=== PATIENT | male | born 1935 | race Caucasian/White ===

== ENCOUNTER 2018-11-12 09:12 | Inpatient (IN) ==
[2018-11-12] MEDS ORDERED: 0.9 % SODIUM CHLORIDE 250 ML IV SCH ×2 (09:30→09:45)
[2018-11-12] MEDS ORDERED: DILTIAZEM 25 MG/5 ML VIAL IV ONE (09:37)
--- NOTE | 2018-11-12 09:39 | Emergency Department Note ---
General Adult HPI - General Chief complaint: Shortness of Breath/Dyspnea Stated complaint: SOB, Recent bloody stools Time Seen by Provider: 11/12/18 09:33 Source: patient Mode of arrival: ambulatory - History of Present Illness HPI Narrative: This patient has a history of atrial fibrillation and takes Coumadin. He still short of breath with rapid heart rate for maybe 10 days. Also said black stools. He was seen here Tuesday with a hemoglobin of 7.9 and an INR of 3.2. He continues to be symptomatic and his heart rate is running as high as 133 at times. Has no abdominal pain or chest pain. - Related Data Home Medications Medication Instructions Recorded Confirmed aspirin 81 mg tablet,delayed 81 mg PO QDAY tab 12/17/14 11/12/18 release multivitamin tablet 1 tab PO QDAY tab 12/17/14 11/12/18 potassium chloride ER 10 mEq 10 meq PO QDAY tab 12/17/14 11/12/18 tablet,extended release diltiazem CD 120 mg 120 mg PO QDAY cap 04/14/16 11/12/18 capsule,extended release 24 hr warfarin 5 mg tablet See Rx Instructions PO QDAY 04/14/16 11/12/18 Previous Rx's Medication Instructions Recorded fluticasone propionate 50 2 spray INTRANASAL QDAY #15.8 g 05/18/18 mcg/actuation nasal spray,suspension atorvastatin 40 mg tablet 40 mg PO QDAY #90 tab 06/02/18 metoprolol tartrate 100 mg tablet 150 mg PO BID #270 tab 06/20/18 Furosemide [Lasix] 20 mg PO DAILY 5 Days #5 tab 11/10/18 Allergies Allergy/AdvReac Type Severity Reaction Status Date / Time tetanus toxoid, adsorbed Allergy Intermediate Hives Verified 11/12/18 09:18 Review of Systems All systems ED: reviewed and negative except as stated. Past Medical History - Past Medical History [facility] Narrative: Medical History Rib fracture (Acute) Bronchitis (Acute) Atrial fibrillation (Acute) History of colonic polyps (Acute) CAD (coronary artery disease) (Acute) Closed fracture of tarsal and metatarsal bones of right foot (Acute) Gastroesophageal reflux (Acute) Hyperlipidemia (Acute) Hypertension, essential (Acute) Osteoarthritis (Acute) Malignant neoplasm prostate (Acute) Shoulder impingement syndrome (Acute) Wrist fracture, left (Acute) Diabetes mellitus, type II (Ruled-out) Past Surgical History History of amputation of finger (Acute) History of arthroscopic knee surgery (Acute) History of inguinal hernia repair (Acute) History of intraocular lens implant (Acute) History of total knee arthroplasty (Acute) History of radical prostatectomy (Acute) History of coronary artery bypass graft (Acute) History of coronary artery stent placement (Acute) History of adenoidectomy (Acute) History of tonsillectomy (Acute) History of esophagogastroduodenoscopy (EGD) (Chronic 06/17/16) Family History Mother Chronic obstructive pulmonary disease Diabetes mellitus Father Atherosclerosis of coronary artery Malignant neoplasm of prostate Essential hypertension Medical history: Reports: atrial fibrillation, cancer (prostate), CAD (coronary artery disease), GERD, hyperlipidemia, hypertension, osteoporosis, other (A. fib, GERD, hyperlipidemia, hypertension,) Surgical history ED: Reports: cataract, coronary bypass (CABG), herniorrhaphy, tonsillectomy, other (Right knee arthroscopy, CABG, last day, cataract, tonsillectomy, foot surgery) - Social History smoking status: Former smoker Alcohol use: Reports: Occasionally Drug use: Reports: none Physical Exam Limitations: no limitations General appearance: alert Head: atraumatic Eye: Present: normal appearance ENT: normal exam Neck: Present: normal inspection Chest: Present: normal inspection Respiratory: Present: normal lung sounds bilaterally Cardiovascular: Present: tachycardia, irregular rhythm, normal heart sounds Abdominal: Present: soft. Absent: distention, tenderness Neurological: Present: alert Psychiatric: Present: normal affect Skin: Present: warm, dry Course Vital Signs Temperature 97.7 F 11/12/18 09:14 Pulse Rate 86 11/12/18 09:14 Respiratory Rate 20 11/12/18 09:14 Blood Pressure 120/81 11/12/18 09:14 Pulse Oximetry (%) 100 11/12/18 09:14 Temperature 97.7 F 11/12/18 09:14 Pulse Rate 83 11/12/18 11:30 Respiratory Rate 24 H 11/12/18 11:30 Blood Pressure 103/56 11/12/18 11:27 Pulse Oximetry (%) 99 11/12/18 11:30 Medical Decision Making - MDM Narrative Medical decision making narrative: This patient was hydrated did not require diltiazem as his heart rate came down to around 100 spontaneously. His hemoglobin is 5.7 down from 7.9 on Tuesday. We gave him 5 mg of vitamin KID. He will be admitted to the hospital by Dr. Meraz with the hospitalist and Dr. Frausto will consult. We will plan for a 3 unit blood transfusion. - Lab Data Lab results reviewed: Yes I reviewed the patient's lab results. Result diagrams: 11/12/18 09:29 11/12/18 09:28 Lab Results 11/12/18 11/12/18 11/12/18 Range/Units 09:28 09:28 09:29 WBC 18.7 H (4.5-11.0) K/mcL RBC 1.76 L (4.50-5.90) M/mcL Hgb 5.7 L* (13.5-16.5) g/dL Hct 18.0 L* (41.0-55.0) % POC Hct 15.0 L* (41.0-55.0) % MCV 102.1 H (80.0-100.0) fL MCH 32.6 (26.0-34.0) pg MCHC 31.9 (31.0-36.0) g/dL RDW 20.5 H (11.5-14.5) % Plt Count 226 (140-440) K/mcL MPV 9.4 (7.4-10.4) fL Gran % 72.0 (38.0-78.0) % Lymph % (Auto) 19.1 (15.5-49.0) % [place] % (Auto) 8.6 (1.0-12.0) % Eos % (Auto) 0.1 (0.0-7.0) % Baso % (Auto) 0.2 (0.0-2.0) % Gran # 13.4 H (1.8-8.0) K/mcL Lymph # (Auto) 3.6 (1.5-4.8) K/mcL [place] # (Auto) 1.6 H (0.1-0.9) K/mcL Eos # (Auto) 0 (0.0-0.7) K/mcL Baso # (Auto) 0 (0.0-0.3) K/mcL PT 35.1 H (11.9-14.5) sec INR 3.6 H (0.9-1.1) POC Sodium 137 (133-145) mmol/L Sodium 136 (133-145) mmol/L POC Potassium 3.8 (3.3-5.1) mmol/L Potassium 3.9 (3.3-5.1) mmol/L POC Chloride 102 (96-108) mmol/L Chloride 100 (96-108) mmol/L Carbon Dioxide 19 L (22-30) mmol/L POC Total CO2 22 (22-30) mmol/L Anion Gap 17.0 H (8-16) POC BUN 37 H (8-23) mg/dl BUN 38 H (8-23) mg/dl Creatinine 1.1 (0.7-1.2) mg/dl POC Creatinine 1.0 (0.7-1.2) mg/dl GFR Calculation 63 Glucose 221 H (70-105) mg/dL POC Glucose 215 H (70-105) mg/dL Calcium 8.7 (8.6-10.4) mg/dl POC WB Ioniz Calcium 1.18 (1.16-1.32) mmol/L Total Bilirubin 0.7 (0.0-1.0) mg/dL AST 13 (0-37) U/l ALT 14 (0-40) U/l Alkaline Phosphatase 47 (39-117) U/L Total Protein 4.9 L (5.9-8.4) gm/dL Albumin 3.3 (3.2-5.2) gm/dL Globulin 1.6 L (2.2-3.7) gm/dL Albumin/Globulin Ratio 2.1 (1.0-2.3) Disposition Pt seen by BACKGROUND CHECK COORDINATOR/PA only: No Clinical Impression: Melena, Atrial fibrillation Disposition: Xfer As Inpt ([facility]) Condition: Good Referrals: Cabrera Cunningham MD [Primary Care Provider] - Time of Disposition: 11:34
[2018-11-12 09:43] LABS: POC Blood Urea Nitrogen 37 mg/dl (8-23); POC CO2 22 mmol/L (22-30); POC Calcium, Ionized 1.18 mmol/L (1.16-1.32); POC Chloride 102 mmol/L (96-108); POC Glucose, Random 215 mg/dL (70-105); POC Potassium 3.8 mmol/L (3.3-5.1); POC Sodium 137 mmol/L (133-145)
[2018-11-12] MEDS ORDERED: DILTIAZEM 125 MG in DEXTROSE 5% IN WATER 100 ML IV SCH (09:45)
[2018-11-12] MEDS ORDERED: DEXTROSE 5% IN WATER 100 ML IV ONE (09:55)
[2018-11-12 10:15] LABS: Basophils # (Auto) 0 K/mcL (0.0-0.3); Basophils % (Auto) 0.2 % (0.0-2.0); Eosinophils # (Auto) 0 K/mcL (0.0-0.7); Eosinophils % (Auto) 0.1 % (0.0-7.0); Hemoglobin 5.7 g/dL (13.5-16.5); Lymphocytes # (Auto) 3.6 K/mcL (1.5-4.8); Lymphocytes % (Auto) 19.1 % (15.5-49.0); Mean Cell Volume 102.1 fL (80.0-100.0); Mean Corpuscular HGB Conc 31.9 g/dL (31.0-36.0); Mean Platelet Volume 9.4 fL (7.4-10.4); Monocytes # (Auto) 1.6 K/mcL (0.1-0.9); Monocytes % (Auto) 8.6 % (1.0-12.0); Platelet Count 226 K/mcL (140-440); RBC 1.76 M/mcL (4.50-5.90); Red Cell Distribution Width 20.5 % (11.5-14.5); WBC 18.7 K/mcL (4.5-11.0)
[2018-11-12 10:25] LABS: INR 3.6 (0.9-1.1); Prothrombin Time 35.1 sec (11.9-14.5)
[2018-11-12 10:30] LABS: ALT/SGPT 14 U/l (0-40); AST/SGOT 13 U/l (0-37); Albumin 3.3 gm/dL (3.2-5.2); Albumin/Globulin Ratio 2.1 (1.0-2.3); Alkaline Phosphatase 47 U/L (39-117); Bilirubin,Total 0.7 mg/dL (0.0-1.0); Blood Urea Nitrogen 38 mg/dl (8-23); Calcium 8.7 mg/dl (8.6-10.4); Carbon Dioxide 19 mmol/L (22-30); Chloride 100 mmol/L (96-108); Globulin 1.6 gm/dL (2.2-3.7); Glomerular Filtration Rate 63; Glucose 221 mg/dL (70-105); Potassium 3.9 mmol/L (3.3-5.1); Sodium 136 mmol/L (133-145)
[2018-11-12] MEDS ORDERED: PHYTONADIONE 5 MG in 0.9 % SODIUM CHLORIDE 50 ML IV ONE (10:52)
--- NOTE | 2018-11-12 12:34 | Internal Med History&Physical ---
Medical - H&P: [facility] Patient information: Note initiated : 11/12/18 at 12:30 pm Service Date, if different from initiated Date: [] Patient: Chuy Beck a 82 y/o M admitted on for SOB, Recent bloody stools. Chief Complaint: [] History of present illness: Mr. Beck is a 82 year old M Who presents to the ED with shortness of breath. He was seen in the ED several days ago with some shortness of breath and had anemia. And that time he was scheduled to see Dr. Frausto for a endoscopy for GI bleeding. Patient reports about 8 days ago he started having some dark tarry stool with some occasional mild shortness of breath which progressed to the point where he went to the ER initially and then today is just short of breath and progressively weak and became lightheaded that he came and. He was found to have a hemoglobin of 5.7. Reports that he saw Dr. Teresa Meneses about a month ago at that time they were concerned about some bleeding and had him stop his aspirin at that time. In the ER today his INR is 3.6. Per his he was pale the past couple days as color is better after several units of blood already. He does take ibuprofen PM 2-3 times per week for the past couple weeks. In the ED his blood pressure is stable the lowest it dropped was 97 /75 but is otherwise been running low 100s. Was tachycardia 130 when he came in but came down to low 100s on its own. Case was discussed with Dr. Frausto who will perform endoscopy. Review of Systems: Pertinent positives as above. Denies he adache/fever/chills/nausea/vomiting/chest or abdominal pain/cough. Remaining 10 point review of system reviewed negative Medical - H&P: PMH Medical history: Medical History Rib fracture (Acute) Bronchitis (Acute) Atrial fibrillation (Acute) History of colonic polyps (Acute) CAD (coronary artery disease) (Acute) Closed fracture of tarsal and metatarsal bones of right foot (Acute) Gastroesophageal reflux (Acute) Hyperlipidemia (Acute) Hypertension, essential (Acute) Osteoarthritis (Acute) Malignant neoplasm prostate (Acute) Shoulder impingement syndrome (Acute) Wrist fracture, left (Acute) Diabetes mellitus, type II (Ruled-out) Past Surgical History History of amputation of finger (Acute) History of arthroscopic knee surgery (Acute) History of inguinal hernia repair (Acute) History of intraocular lens implant (Acute) History of total knee arthroplasty (Acute) History of radical prostatectomy (Acute) History of coronary artery bypass graft (Acute) History of coronary artery stent placement (Acute) History of adenoidectomy (Acute) History of tonsillectomy (Acute) History of esophagogastroduodenoscopy (EGD) (Chronic 06/17/16) Family History Mother Chronic obstructive pulmonary disease Diabetes mellitus Father Atherosclerosis of coronary artery Malignant neoplasm of prostate Essential hypertension Social History (Last Updated 05/18/18 @ 13:49 by Cabrera Cunningham MD) Patient quit smoking 35 years ago Drinks 2 beers per day Is independent ambulatory Lives at home with his Medical - H&P: Meds Home Medications Medication Instructions Recorded Confirmed Type aspirin 81 mg tablet,delayed 81 mg PO QDAY tab 12/17/14 11/12/18 History release multivitamin tablet 1 tab PO QDAY tab 12/17/14 11/12/18 History potassium chloride ER 10 mEq 10 meq PO QDAY tab 12/17/14 11/12/18 History tablet,extended release diltiazem CD 120 mg 120 mg PO QDAY cap 04/14/16 11/12/18 History capsule,extended release 24 hr warfarin 5 mg tablet See Rx Instructions PO QDAY 04/14/16 11/12/18 History fluticasone propionate 50 2 spray INTRANASAL QDAY #15.8 g 05/18/18 11/12/18 Rx mcg/actuation nasal spray,suspension atorvastatin 40 mg tablet 40 mg PO QDAY #90 tab 06/02/18 11/12/18 Rx metoprolol tartrate 100 mg tablet 150 mg PO BID #270 tab 06/20/18 11/12/18 Rx Furosemide [Lasix] 20 mg PO DAILY 5 Days #5 tab 11/10/18 11/12/18 Rx Allergies Allergy/AdvReac Type Severity Reaction Status Date / Time tetanus toxoid, adsorbed Allergy Intermediate Hives Verified 11/12/18 09:18 Medical - H&P: Exam - Constitutional Vitals: Temp Pulse Resp BP Pulse Ox 97.7 F 83 24 H 103/56 99 11/12/18 09:14 11/12/18 11:30 11/12/18 11:30 11/12/18 11:27 11/12/18 11:30 Exam: General: Alert, Awake, No acute Distress Eyes/N/T: EOMI, PEERL, DMM Head/Neck: neck supple, normocephalic atraumatic CV: Irregular irrregular with 2/6 SM Pulm: Clear b/l, no wheezing/rhonchi/rales Abd: soft, nontender, +BS x4 Ext: no clubbing/cyanosis/edema Neuro: Alert, no focal deficits, moves all extremities, CN 2-12 grossly intact, symmetrical strength b/l upper/lower, sensations intact b/l upper/lower Skin: warm/dry, pale Medical - H&P: Reslt - Labs CBC & Chem 7: 11/12/18 09:29 11/12/18 09:28 Labs: Short CBC 11/12/18 Range/Units 09:29 WBC 18.7 H (4.5-11.0) K/mcL Hgb 5.7 L* (13.5-16.5) g/dL Hct 18.0 L* (41.0-55.0) % Plt Count 226 (140-440) K/mcL BMP 11/12/18 09:28 Sodium 136 Potassium 3.9 Chloride 100 Carbon Dioxide 19 L BUN 38 H Creatinine 1.1 Glucose 221 H Calcium 8.7 Liver Function 11/12/18 Range/Units 09:28 Total Bilirubin 0.7 (0.0-1.0) mg/dL AST 13 (0-37) U/l ALT 14 (0-40) U/l Alkaline Phosphatase 47 (39-117) U/L Albumin 3.3 (3.2-5.2) gm/dL Medical - H&P: A/P - Narrative A/P Narrative: A: *Symptomatic anemia, acute blood loss: 2/2 GI bleed likely upper -Has been taking ibuprofen 2-3 times per week *GI bleed: *Coagulopathy: 2/2 warfarin 3.6 -ASA at home has been held because of inserts for PUD over the past month *Leukocytosis: suspect reactive, afebrile, no obvious source of infection *Macrocytosis: *Hyperglycemia: Denies diabetes *AFib: On diltiazem/metoprolol and warfarin at home *CAD with CABG/Stent: follows with Dr. Vogt *HTN/HLD: *GERD: Is on Prilosec at home * P: -NPO, IVF -Dr. Mi consulted -Transfusing PRBCs, follow-up H&H -Protonix drip -Avoid NSAIDs -check A1c, SSI -Aspirin and warfarin held, likely restart warfarin at 5 to 7 days depending on endoscopy results -Continue calcium channel anju and beta-anju -cont statin -hold lasix for now -Check B12 level -pt/ot -ppx: SCDs
[2018-11-12] MEDS ORDERED: METOCLOPRAMIDE 10 MG/2 ML VIAL IV PRN (13:53)
[2018-11-12] MEDS ORDERED: 0.9 % SODIUM CHLORIDE 1,000 ML IV SCH (13:53)
[2018-11-12] MEDS ORDERED: PANTOPRAZOLE 40 MG VIAL IV ONE (13:53)
[2018-11-12] MEDS ORDERED: ONDANSETRON 4 MG/2 ML VIAL IV PRN (13:53)
[2018-11-12] MEDS ORDERED: IPRATROPIUM/ALBUTEROL 3 ML AMPUL.NEB NEB PRN (13:53)
[2018-11-12] MEDS ORDERED: MAGNESIUM SULFATE 2 GM/50 ML BAG IV PRN (13:53)
[2018-11-12] MEDS ORDERED: POTASSIUM CHLORIDE 40 MEQ in DEXTROSE 5% IN WATER 500 ML IV PRN (13:53)
[2018-11-12] MEDS ORDERED: POTASSIUM CHLORIDE 20 MEQ TABLET PO PRN ×2 (13:53)
[2018-11-12] MEDS ORDERED: DEXTROSE 50% 50 ML VIAL IV PRN (13:53)
[2018-11-12] MEDS ORDERED: ACETAMINOPHEN 325 MG TABLET PO PRN (13:53)
[2018-11-12] MEDS ORDERED: DEXTROSE 31 GM ORAL.SUSP PO PRN (13:53)
[2018-11-12] MEDS: PANTOPRAZOLE 80 MG in 0.9 % SODIUM CHLORIDE 100 ML IV SCH (14:43)
[2018-11-12] MEDS: 0.9 % SODIUM CHLORIDE 10 ML SYRINGE IV SCH ×2 (15:10→22:04)
[2018-11-12] MEDS: INSULIN LISPRO 1 UNIT/0.01 ML UNIT SQ SCH ×2 (17:07→21:38)
[2018-11-12] MEDS ORDERED: FUROSEMIDE 20 MG/2 ML VIAL IV ONE ×2 (17:46→19:28)
[2018-11-12] MEDS: DOCUSATE SODIUM 100 MG CAPSULE PO SCH (21:39)
[2018-11-12] MEDS: METOPROLOL TARTRATE 50 MG TABLET PO SCH (21:43)
[2018-11-12 21:56] LABS: Hematocrit 30.5 % (41.0-55.0); Hemoglobin 10.5 g/dL (13.5-16.5)
[2018-11-13] MEDS: PANTOPRAZOLE 80 MG in 0.9 % SODIUM CHLORIDE 100 ML IV SCH ×3 (00:13→23:51)
[2018-11-13 04:59] LABS: Basophils # (Auto) 0 K/mcL (0.0-0.3); Basophils % (Auto) 0.2 % (0.0-2.0); Eosinophils # (Auto) 0 K/mcL (0.0-0.7); Eosinophils % (Auto) 0.4 % (0.0-7.0); Granulocytes % (Auto) 70.3 % (38.0-78.0); Hematocrit 27.6 % (41.0-55.0); Hemoglobin 9.2 g/dL (13.5-16.5); Lymphocytes # (Auto) 1.8 K/mcL (1.5-4.8); Lymphocytes % (Auto) 21.2 % (15.5-49.0); Mean Cell Volume 95.5 fL (80.0-100.0); Mean Corpuscular HGB Conc 33.3 g/dL (31.0-36.0); Mean Platelet Volume 8.9 fL (7.4-10.4); Monocytes # (Auto) 0.7 K/mcL (0.1-0.9); Monocytes % (Auto) 7.9 % (1.0-12.0); Platelet Count 119 K/mcL (140-440); RBC 2.89 M/mcL (4.50-5.90); Red Cell Distribution Width 16.4 % (11.5-14.5); WBC 8.3 K/mcL (4.5-11.0)
[2018-11-13 05:26] LABS: INR 1.3 (0.9-1.1); Prothrombin Time 16.6 sec (11.9-14.5)
[2018-11-13 05:31] LABS: ALT/SGPT 12 U/l (0-40); AST/SGOT 14 U/l (0-37); Albumin 2.9 gm/dL (3.2-5.2); Albumin/Globulin Ratio 2.4 (1.0-2.3); Alkaline Phosphatase 42 U/L (39-117); Bilirubin,Direct 0.3 mg/dL (0.0-0.3); Bilirubin,Total 1.1 mg/dL (0.0-1.0); Blood Urea Nitrogen 26 mg/dl (8-23); Calcium 7.8 mg/dl (8.6-10.4); Carbon Dioxide 23 mmol/L (22-30); Chloride 107 mmol/L (96-108); Gamma Glutamyl Transpeptidase 14 U/L (8-61); Globulin 1.2 gm/dL (2.2-3.7); Glomerular Filtration Rate 70; Glucose 93 mg/dL (70-105); Lactate Dehydrogenase 144 U/L (94-250); Magnesium 1.8 mg/dL (1.6-2.5); Phosphorous 3.4 mg/dL (2.7-4.5); Potassium 3.4 mmol/L (3.3-5.1); Sodium 141 mmol/L (133-145); Triglycerides 157 mg/dl (<150); Uric Acid 6.2 mg/dL (2.5-8.0)
[2018-11-13] MEDS: 0.9 % SODIUM CHLORIDE 10 ML SYRINGE IV SCH ×3 (06:10→21:04)
--- NOTE | 2018-11-13 07:12 | Internal Med Progress Note ---
Medical - PN: Subj Patient information: Note initiated : 11/13/18 at 7:08 am Service Date, if different from initiated Date: [] Patient: Chuy Beck a 82 y/o M admitted on 11/12/18 for SOB, Recent bloody stools. Chief Complaint: [] Interval history: Mr. Beck is a 82 year old M Who presents to the ED with shortness of breath. He was seen in the ED several days ago with some shortness of breath and had anemia. And that time he was scheduled to see Dr. Frausto for a endoscopy for GI bleeding. Patient reports about 8 days ago he started having some dark tarry stool with some occasional mild shortness of breath which progressed to the point where he went to the ER initially and then today is just short of breath and progressively weak and became lightheaded that he came and. He was found to have a hemoglobin of 5.7. Reports that he saw Dr. Teresa Meneses about a month ago at that time they were concerned about some bleeding and had him stop his aspirin at that time. In the ER today his INR is 3.6. Per his he was pale the past couple days as color is better after several units of blood already. He does take ibuprofen PM 2-3 times per week for the past couple weeks. In the ED his blood pressure is stable the lowest it dropped was 97 /75 but is otherwise been running low 100s. Was tachycardia 130 when he came in but came down to low 100s on its own. Case was discussed with Dr. Frausto who will perform endoscopy. / Feeling much better since receiving the blood. No new complaints. No chest pain shortness of breath. Review of Systems: denies headache/fever/chills/nausea/vomiting/chest or abdominal pain/cough/dyspnea/diarrhea. Otherwise see above. - Constitutional Vitals: Vital Signs Temp Pulse Resp BP Pulse Ox 99.5 F H 97 H 12 125/60 94 11/13/18 06:01 11/12/18 17:00 11/13/18 06:01 11/13/18 06:01 11/13/18 04:02 Period Temp Pulse Resp BP Sys/Wu Pulse Ox Last 24 Hr 97.7 F-99.5 F 60-125 12-29 97-128/56-104 94-100 Intake and Output 11/12/18 11/13/18 11/13/18 21:59 05:59 13:59 Intake Total 1405 345 Output Total 1525 575 Balance -120 -230 Weight 86.5 kg Intake & Output: Intake & Output 11/12/18 11/13/18 11/13/18 21:59 05:59 13:59 Intake Total 1405 345 Output Total 1525 575 Balance -120 -230 Weight 86.5 kg Intake: IV 95 Protonix 80 mg In Sodium 95 Chloride 0.9% 100 ml @ 8 MG/HR 10 mls/hr IV Q10H [facility] Rx#: [id number] Oral 1080 250 Blood Product 325 Output: Void Amount 1525 575 Exam: General: Alert, Awake, No acute Distress Eyes/N/T: EOMI, Head/Neck: neck supple, CV: Irregular irrregular with 2/6 SM Pulm: Clear b/l, no wheezing/rhonchi/rales Abd: soft, nontender, +BS x4 Ext: no clubbing/cyanosis/edema Neuro: Alert, no focal deficits, moves all extremities, Skin: warm/dry, pale Medical - PN: Obj Da - Labs CBC & Chem 7: 11/13/18 03:35 11/13/18 03:35 Labs: Abnormal Lab Results 11/13/18 11/13/18 11/13/18 03:35 03:35 03:35 WBC RBC 2.89 L Hgb 9.2 L Hct 27.6 L POC Hct MCV RDW 16.4 H Plt Count 119 L Gran # [place] # (Auto) PT 16.6 H INR 1.3 H Carbon Dioxide Anion Gap POC BUN BUN 26 H Glucose POC Glucose Calcium 7.8 L Total Bilirubin 1.1 H Total Protein 4.1 L Albumin 2.9 L Globulin 1.2 L Albumin/Globulin Ratio 2.4 H Triglycerides 157 H 11/12/18 11/12/18 11/12/18 20:53 09:29 09:28 WBC 18.7 H RBC 1.76 L Hgb 10.5 L 5.7 L* Hct 30.5 L 18.0 L* POC Hct MCV 102.1 H RDW 20.5 H Plt Count Gran # 13.4 H [place] # (Auto) 1.6 H PT 35.1 H INR 3.6 H Carbon Dioxide Anion Gap POC BUN BUN Glucose POC Glucose Calcium Total Bilirubin Total Protein Albumin Globulin Albumin/Globulin Ratio Triglycerides 11/12/18 09:28 WBC RBC Hgb Hct POC Hct 15.0 L* MCV RDW Plt Count Gran # [place] # (Auto) PT INR Carbon Dioxide 19 L Anion Gap 17.0 H POC BUN 37 H BUN 38 H Glucose 221 H POC Glucose 215 H Calcium Total Bilirubin Total Protein 4.9 L Albumin Globulin 1.6 L Albumin/Globulin Ratio Triglycerides Meds: Medications Acetaminophen (Tylenol) 650 mg PO Q6HP PRN PRN Reason: PAIN/FEVER > 101 Albuterol/Ipratropium (Duoneb) 3 ml NEB Q4HP PRN PRN Reason: Shortness Of Breath Atorvastatin Calcium (Lipitor) 40 mg PO DAILY [facility] Cyanocobalamin (Vitamin B-12) 1,000 mcg PO DAILY [facility] Dextrose (Dextrose 50%) 0 ml IV UD PRN PRN Reason: Hypoglycemia Diagnostic Test (Pha) (Accu-Chek) 1 each FS [facility] Last Admin: 11/12/18 21:38 Dose: 1 each Documented by: Diltiazem HCl (Cardizem Cd) 120 mg PO DAILY [facility] Docusate Sodium (Colace) 100 mg PO BID [facility] Last Admin: 11/12/18 21:39 Dose: 100 mg Documented by: Glucose (Insta-Glucose) 15 gm PO PRN PRN PRN Reason: Hypoglycemia Potassium Chloride 40 meq/ (Dextrose) 520 mls @ 130 mls/hr IV UD PRN PRN Reason: Potassium < 3 Magnesium Sulfate (Magnesium Sulfate) 2 gm in 50 mls @ 50 mls/hr IV UD PRN PRN Reason: Magnesium </= 1.6 Pantoprazole Sodium 80 mg/ (Sodium Chloride) 100 mls @ 10 mls/hr IV Q10H [facility] Last Admin: 11/13/18 00:13 Dose: 8 mg/hr, 10 mls/hr Documented by: Insulin Human Lispro (Humalog) 0 unit SQ [facility]; Protocol Last Admin: 11/12/18 21:38 Dose: Not Given Documented by: Metoclopramide HCl (Reglan) 10 mg IV Q6HP PRN PRN Reason: Nausea And Vomiting Metoprolol Tartrate (Lopressor) 150 mg PO BID [facility] Last Admin: 11/12/18 21:43 Dose: Not Given Documented by: Ondansetron HCl (Zofran) 4 mg IV Q4HP PRN PRN Reason: Nausea And Vomiting Potassium Chloride (Kdur) 40 meq PO UD PRN PRN Reason: Potssium is 3-3.5 Potassium Chloride (Kdur) 40 meq PO UD PRN PRN Reason: Potassium < 3 Sodium Chloride (Saline Flush) 10 ml IV Q8 [facility] Last Admin: 11/13/18 06:10 Dose: 10 ml Documented by: Medical - PN: A/P - Time Spent With Patient Total time spent is greater than 50% in coordination of care (as documented) at patient's floor/unit and/or counseling patient: - Narrative A/P Narrative: A: *Symptomatic anemia, acute blood loss: 2/2 GI bleed likely upper -Has been taking ibuprofen 2-3 times per week -3PRBC 6/2 -H&H stable *GI bleed: *Coagulopathy: 2/2 warfarin 3.6 -ASA at home has been held because of inserts for PUD over the past month *Macrocytosis: low b12 *Hyperglycemia: Denies diabetes *AFib: On diltiazem/metoprolol and warfarin at home *CAD with CABG/Stent: follows with Dr. Vogt *HTN/HLD: *GERD: Is on Prilosec at home * P: -NPO -Dr. Mi endoscopy today -Protonix drip -Avoid NSAIDs -Aspirin and warfarin held, likely restart warfarin at 5 to 7 days depending on endoscopy results -Continue calcium channel anju and beta-anju -cont statin -hold lasix for now -pt/ot -ppx: SCDs Medical - PN: Qual - Stroke Symptom Onset Unknown: No - VTE Deep Vein Thrombosis/Pulmonary Embolism Present on Admission: No
[2018-11-13] MEDS: INSULIN LISPRO 1 UNIT/0.01 ML UNIT SQ SCH ×4 (07:32→22:59)
[2018-11-13] MEDS ORDERED: METOPROLOL TARTRATE 5 MG/5 ML VIAL IV PRN (08:25)
[2018-11-13] MEDS: ATORVASTATIN 20 MG TABLET PO SCH (08:48)
[2018-11-13] MEDS: METOPROLOL TARTRATE 50 MG TABLET PO SCH ×2 (08:49→23:01)
[2018-11-13] MEDS: DOCUSATE SODIUM 100 MG CAPSULE PO SCH ×2 (08:49→21:00)
[2018-11-13] MEDS: CYANOCOBALAMIN (VITAMIN B-12) 500 MCG TABLET PO SCH (08:49)
[2018-11-13] MEDS: DILTIAZEM 120 MG CAP.XL.24H PO SCH (08:49)
[2018-11-13] MEDS ORDERED: KETAMINE HCL 50 MG/ML ML IV PRN (16:30)
[2018-11-13] MEDS ORDERED: PROPOFOL 200 MG/20 ML VIAL IV SCH (16:30)
[2018-11-13] MEDS ORDERED: MIDAZOLAM 2 MG/2 ML VIAL IV SCH (16:30)
[2018-11-13] MEDS ORDERED: POLYETHYLENE GLYCOL 3350 17 GM PACKET PO PRN (19:47)
[2018-11-13] MEDS ORDERED: MELATONIN 3 MG TABLET PO PRN (19:48)
[2018-11-13] MEDS ORDERED: diphenhydrAMINE 25 MG CAPSULE PO ONE (19:48)
[2018-11-14 05:50] LABS: Blood Urea Nitrogen 17 mg/dl (8-23); Calcium 7.5 mg/dl (8.6-10.4); Carbon Dioxide 21 mmol/L (22-30); Chloride 108 mmol/L (96-108); Glomerular Filtration Rate 79; Glucose 85 mg/dL (70-105); Potassium 3.5 mmol/L (3.3-5.1); Sodium 141 mmol/L (133-145)
[2018-11-14 05:51] LABS: Basophils # (Auto) 0 K/mcL (0.0-0.3); Basophils % (Auto) 0.3 % (0.0-2.0); Eosinophils # (Auto) 0.1 K/mcL (0.0-0.7); Eosinophils % (Auto) 1.4 % (0.0-7.0); Granulocytes % (Auto) 64.5 % (38.0-78.0); Hematocrit 27.6 % (41.0-55.0); Hemoglobin 9.1 g/dL (13.5-16.5); Lymphocytes # (Auto) 1.2 K/mcL (1.5-4.8); Mean Cell Volume 95.5 fL (80.0-100.0); Mean Corpuscular HGB Conc 33.2 g/dL (31.0-36.0); Mean Platelet Volume 8.6 fL (7.4-10.4); Monocytes # (Auto) 0.5 K/mcL (0.1-0.9); Monocytes % (Auto) 9.8 % (1.0-12.0); Platelet Count 121 K/mcL (140-440); RBC 2.89 M/mcL (4.50-5.90); Red Cell Distribution Width 17.4 % (11.5-14.5)
[2018-11-14] MEDS: 0.9 % SODIUM CHLORIDE 10 ML SYRINGE IV SCH (05:57)
--- NOTE | 2018-11-14 06:59 | Discharge Summary ---
Medical - DS: Prov Patient information: Note initiated : 11/14/18 at 6:57 am Service Date, if different from initiated Date: [] Patient: Chuy Beck 83 y/o M admitted on 11/12/18 for SOB, Recent bloody stools. Chief Complaint: [] Date of admission: 11/12/18 12:50 Discharge date: 11/14/18 Primary care physician: Cabrera Cunnnigham Consults: 11/12/18 Consult to Physician [CONS] Stat Comment: Consulting Provider: Viraj Mi Reason For Exam: Physician to Consult Consult to Physician [CONS] Stat Comment: Consulting Provider: Raymond Meraz Reason For Exam: Physician to Consult Medical - DS: Meds - Discharge Medications Prescriptions: Pantoprazole [Protonix] 40 mg PO BIDAC #60 tab Active and Home Medications: Home Medications aspirin 81 mg tablet,delayed release 81 mg PO QDAY tab 12/17/14 [History Confirmed 11/12/18 Last Taken Unknown] multivitamin tablet 1 tab PO QDAY tab 12/17/14 [History Confirmed 11/12/18 Last Taken Unknown] potassium chloride ER 10 mEq tablet,extended release 10 meq PO QDAY tab 12/17/14 [History Confirmed 11/12/18 Last Taken Unknown] diltiazem CD 120 mg capsule,extended release 24 hr 120 mg PO QDAY cap 04/14/16 [History Confirmed 11/12/18 Last Taken Unknown] warfarin 5 mg tablet See Rx Instructions PO QDAY 04/14/16 [History Confirmed 11/12/18 Last Taken Unknown] fluticasone propionate 50 mcg/actuation nasal spray,suspension 2 spray INTRANASAL QDAY #15.8 g 05/18/18 [Rx Confirmed 11/12/18 Last Taken Unknown] atorvastatin 40 mg tablet 40 mg PO QDAY #90 tab 06/02/18 [Rx Confirmed 11/12/18 Last Taken Unknown] metoprolol tartrate 100 mg tablet 150 mg PO BID #270 tab 06/20/18 [Rx Confirmed 11/12/18 Last Taken Unknown] Furosemide [Lasix] 20 mg PO DAILY 5 Days #5 tab 11/10/18 [Rx Confirmed 11/12/18 Last Taken Unknown] Home Medications aspirin 81 mg tablet,delayed release 81 mg PO QDAY tab 12/17/14 [History Confirmed 11/12/18 Last Taken Unknown] multivitamin tablet 1 tab PO QDAY tab 12/17/14 [History Confirmed 11/12/18 Last Taken Unknown] potassium chloride ER 10 mEq tablet,extended release 10 meq PO QDAY tab 12/17/14 [History Confirmed 11/12/18 Last Taken Unknown] diltiazem CD 120 mg capsule,extended release 24 hr 120 mg PO QDAY cap 04/14/16 [History Confirmed 11/12/18 Last Taken Unknown] warfarin 5 mg tablet See Rx Instructions PO QDAY 04/14/16 [History Confirmed 11/12/18 Last Taken Unknown] fluticasone propionate 50 mcg/actuation nasal spray,suspension 2 spray INTRANASAL QDAY #15.8 g 05/18/18 [Rx Confirmed 11/12/18 Last Taken Unknown] atorvastatin 40 mg tablet 40 mg PO QDAY #90 tab 06/02/18 [Rx Confirmed 11/12/18 Last Taken Unknown] metoprolol tartrate 100 mg tablet 150 mg PO BID #270 tab 06/20/18 [Rx Confirmed 11/12/18 Last Taken Unknown] Furosemide [Lasix] 20 mg PO DAILY 5 Days #5 tab 11/10/18 [Rx Confirmed 11/12/18 Last Taken Unknown] Pantoprazole [Protonix] 40 mg PO BIDAC #60 tab 11/14/18 [Rx Last Taken Unknown] Medical - DS: Hosp Hospital course: Mr. Beck is a 83 year old M Mr. Beck is a 82 year old M Who presents to the ED with shortness of breath. He was seen in the ED several days ago with some shortness of breath and had anemia. And that time he was scheduled to see Dr. Frausto for a endoscopy for GI bleeding. Patient reports about 8 days ago he started having some dark tarry stool with some occasional mild shortness of breath which progressed to the point where he went to the ER initially and then today is just short of breath and progressively weak and became lightheaded that he came and. He was found to have a hemoglobin of 5.7. Reports that he saw Dr. Teresa Meneses about a month ago at that time they were concerned about some bleeding and had him stop his aspirin at that time. In the ER today his INR is 3.6. Per his he was pale the past couple days as color is better after several units of blood already. He does take ibuprofen PM 2-3 times per week for the past couple weeks. In the ED his blood pressure is stable the lowest it dropped was 97 /75 but is otherwise been running low 100s. Was tachycardia 130 when he came in but came down to low 100s on its own. Case was discussed with Dr. Frausto who will perform endoscopy. 6/ Feeling much better since receiving the blood. No new complaints. No chest pain shortness of breath. 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 No further bleeding. Continued on PPI at discharge follow-up with Dr. Frausto for eventual repeat EGD. Stable for discharge Restart aspirin and warfarin. Discharge diagnosis: Upper GI bleed from peptic ulcer disease symptomatic anemia coagulopathy A. Secondary discharge diagnosis: A. fib CAD hypertension - Time Spent with Patient Total time spent providing and/or coordinating discharge services: Greater than 30 minutes Medical - DS: Exam - Constitutional Vitals: Vital Signs Temp Pulse Pulse Resp BP BP Pulse Ox 11/14/18 04:31 16 109/62 11/14/18 04:02 109/67 11/14/18 03:31 99/65 11/14/18 03:02 99/53 11/14/18 02:32 115/46 11/14/18 02:01 98/64 11/14/18 01:31 114/75 11/14/18 01:01 100/55 11/14/18 00:31 102/54 11/14/18 00:17 98.3 F 16 90/54 96 11/14/18 00:02 98.3 F 12 88/49 11/13/18 23:31 127/74 11/13/18 23:01 112/69 11/13/18 22:31 108/66 11/13/18 22:01 117/68 11/13/18 21:31 106/61 11/13/18 21:01 110/68 11/13/18 20:31 104/72 11/13/18 20:01 103/72 11/13/18 20:00 98.3 F 11/13/18 19:32 118/42 11/13/18 19:12 138/77 11/13/18 18:32 97 11/13/18 18:31 16 124/83 97 11/13/18 18:01 16 121/67 97 11/13/18 17:55 16 129/75 98 11/13/18 17:40 84 16 108/65 97 11/13/18 17:30 88 16 102/72 100 11/13/18 17:28 59 L 16 107/77 100 11/13/18 16:59 104 H 17 143/74 98 11/13/18 16:31 98.1 F 18 134/81 99 11/13/18 11:17 97.3 F 96 H 18 132/75 97 11/13/18 08:21 149/99 11/13/18 08:18 131/89 11/13/18 07:22 99 H 96 11/13/18 07:11 97.9 F 97 H 16 135/85 96 Intake and Output 11/13/18 11/14/18 11/14/18 21:59 05:59 13:59 Intake Total 68 560 Output Total 750 Balance 68 -190 Intake: IV 68 0 Protonix 80 mg In Sodium 68 0 Chloride 0.9% 100 ml @ 8 MG/HR 10 mls/hr IV Q10H [facility] Rx#: [id number] Oral 0 560 Output: Void Amount 750 Other: Stool Size Small Stool Color Black Stool Consistency Dry and Hard # Voids 0 # Bowel Movements 0 Weight 86.409 kg Medical - DS: Data Labs on day of discharge: Labs from last 24 hours 11/14/18 11/14/18 03:35 03:35 WBC 5.0 RBC 2.89 L Hgb 9.1 L Hct 27.6 L MCV 95.5 MCH 31.7 MCHC 33.2 RDW 17.4 H Plt Count 121 L MPV 8.6 Gran % 64.5 Lymph % (Auto) 24.0 Treasure % (Auto) 9.8 Eos % (Auto) 1.4 Baso % (Auto) 0.3 Gran # 3.2 Lymph # (Auto) 1.2 L Treasure # (Auto) 0.5 Eos # (Auto) 0.1 Baso # (Auto) 0 Sodium 141 Potassium 3.5 Chloride 108 Carbon Dioxide 21 L Anion Gap 12.0 BUN 17 Creatinine 0.9 GFR Calculation 79 Glucose 85 Calcium 7.5 L Medical - DS: A/P - Patient/Caregiver Discharge Instructions Activity: increase activity as tolerated Diet: Cardiac Prescriptions: Pantoprazole [Protonix] 40 mg PO BIDAC #60 tab - Follow up Plan Follow up with: Cabrera Cunningham MD [Primary Care Provider] - Viraj Mi MD [Physician] - Disposition: Home, Self-Care Prognosis: Fair Rehab Potential: Fair Overall status at discharge: patient is back to baseline Medical - DS: Qual - VTE Deep Vein Thrombosis/Pulmonary Embolism Present on Admission: No
[2018-11-14] MEDS ORDERED: PANTOPRAZOLE 40 MG PACKET PO SCH (07:30)
[2018-11-14] MEDS: INSULIN LISPRO 1 UNIT/0.01 ML UNIT SQ SCH (08:25)
[2018-11-14] MEDS: DILTIAZEM 120 MG CAP.XL.24H PO SCH (08:48)
[2018-11-14] MEDS: DOCUSATE SODIUM 100 MG CAPSULE PO SCH (08:48)
[2018-11-14] MEDS: METOPROLOL TARTRATE 50 MG TABLET PO SCH (08:48)
[2018-11-14] MEDS: CYANOCOBALAMIN (VITAMIN B-12) 500 MCG TABLET PO SCH (08:49)
[2018-11-14] MEDS ORDERED: ASPIRIN 81 MG TAB.CHEW PO SCH (09:00)
[2018-11-14] MEDS ORDERED: WARFARIN 5 MG TABLET PO SCH (09:00)
--- NOTE | 2018-11-14 09:15 | Operative Note ---
DATE OF OPERATION: 11/13/2018 PREPROCEDURE DIAGNOSIS: Upper GI bleed secondary to ulcer, angiodysplasia or Dieulafoy's lesion. POSTPROCEDURE DIAGNOSES: 1. Duodenal erosions x2, gastric ulcer, probable source of major bleeding. 2. Atypia with angiodysplasia. 3. EGitis. 4. Stricture EG junction. PROCEDURE: Esophagogastroduodenoscopy with ablation of lesion for control of bleeding. INSTRUMENT USED: Olympus OLIVER 190 endoscope. SPECIMENS OBTAINED: Biopsies from antrum for histopathology and CLOtest. CLOtest RESULTS: Negative INDICATIONS: The patient is an 82-year-old gentleman who was admitted under the courtesy of one of the hospitalist, Dr. Meraz who is caring for the patient at this time. The patient's primary care physician is Dr. Cabrera Cunningham. He did have some melena. He did present to the emergency department earlier, perhaps on Tuesday. The hemoglobin was reasonably stable. Blood pressure and pulse were stable. Hemoglobin was 7.9. He has been having a little bit of melena for perhaps about a week. I believe he was discharged with PPI medication. We were planning on EGD on an outpatient basis. However, he returned on Tuesday with hemoglobin down to perhaps 5.7. He was given transfusion of 2 or 3 units. On Tuesday, I believe the INR was 3.6, after some vitamin K was down to 1.3. The patient does not admit to signs or symptoms that strongly suggest continued bleeding. Endoscopy is indicated to evaluate for pathology that may explain his upper GI bleeding. The BUN at one time was elevated at about 30 with a creatinine of 0.9. This is consistent with an upper GI bleed. The patient may have been taking some aspirin in addition to the Coumadin. INFORMED CONSENT: Time of informed consent 17:10. The procedure was reviewed with the patient. The patient had no further questions and accepts the risks and benefits thereof. One of the risks that were discussed included . Additional risks that were also discussed included bleeding, reaction to medication, possible perforation and possible need for surgery. IV MEDICATIONS USED: Versed 2 mg and propofol 120 mg. FINDINGS: ESOPHAGUS: Proximal, mid and distal esophagus appeared normal. EG JUNCTION: This was around 39 or 40 cm. There was some erythema and edema noted, mild stricture was noted. No dilation was accomplished at this time. There was no serious complain of dysphagia. There was a hiatal hernia down to about 42 to 43 cm. STOMACH: Cardia and fundus normal. Body: On the anterior wall, there was an atypical angiodysplasia around 2 x 4 mm in size. This did not bleed. This was treated with a burst plasma argon circumferential fire probe. Antrum: On the anterior wall in the mid to distal antrum there was a 4 x 6 mm ulcer with a clean base. This does not have evidence of a high chance of continued or recurrent bleeding, I believe with the PPI medication and correcting the excessive anticoagulation he has had resolution of his previous bleeding. Biopsies were taken of the antrum for histopathology and CLOtest. PYLORUS: Normal. DUODENUM: At the junction of the bulb and descending limb on 2 separate folds there was a 2 to 3 mm erosion and central depression. No biopsies were taken from the duodenum. The descending limb of the duodenum appeared normal. RECOMMENDATIONS: Continue PPI medication; this probably can be changed to by mouth. Diet can be allowed, perhaps full liquid diet and advance as tolerated. I have no objections to restarting the Coumadin with a goal to get his INR closer to 2 to 2.5, or even up to 3.6. I have no objection to starting the aspirin. I would recommend a repeat EGD in about 3 months to evaluate status of healing. SEDATION TIME: 17:15-17:40. Please refer to the preprocedure nurse's notes, procedure flowsheet, procedure record, and post-procedure assessment for details of the sedation including the pre-, intra-, and post-service work. [email or web address] Job ID: [id number] Doc ID: [id number] Viraj NEGRON
[2018-11-14] MEDS: ATORVASTATIN 20 MG TABLET PO SCH (09:38)
[2018-11-14 10:06] LABS: INR 1.2 (0.9-1.1); Prothrombin Time 14.7 sec (11.9-14.5)
[2018-11-14] MEDS ORDERED: ENOXAPARIN 40 MG/0.4 ML SYRINGE SQ ONE (10:55)
--- NOTE | 2018-11-15 14:15 | Surgical Pathology Report ---
HISTOLOGY SPECIMEN MICROSCOPIC DIAGNOSIS STOMACH, ANTRUM, BIOPSY: -- MILD CHRONIC GASTRITIS. -- NO HELICOBACTER SPECIES IDENTIFIED ON ALCIAN YELLOW STAIN (ADEQUATE TECHNICAL CONTROL). (EBD:katja) CLINICAL HISTORY Upper GI bleed; melena. PROCEDURAL IMPRESSION Duodenal erosion; gastric ulcer; atypical angio; esophagitis; stricture EGD. GROSS DESCRIPTION Received in formalin labeled antrum biopsy, are three ambrosio tissue fragments 0.1 to 0.5 cm. Totally submitted - one cassette. (STS:sln) Electronically Signed by: Ofelia Wolfe M.D.
== END 2018-11-14 11:29 | disposition home or self-care (01) | DRG 813 ==
LOC: ED 09:12 → ICU 12:50
PROVIDERS: ADMIT Internal Medicine; ATTEND Internal Medicine
PROC: EGDERBE (ICD-10-PCS; 2018-11-13 17:30)